=== PATIENT | male | born 1985 | race Hispanic/Latino ===

== ENCOUNTER 2021-04-17 14:43 | Emergency (ER) | payer BC, SELFPAY ==
[2021-04-17] MEDS ORDERED: Ibuprofen 200 MG TAB ONE (16:51)
[2021-04-17] MEDS ORDERED: Acetaminophen 325 MG TAB ONE (16:51)
== END 2021-04-17 17:03 | disposition home or self-care (01) ==
LOC: BURERS 14:43
DX: S92.354A Nondisplaced fracture of fifth metatarsal bone, right foot, initial encounter for closed fracture (principal); W10.9XXA Fall (on) (from) unspecified stairs and steps, initial encounter; Z79.899 Other long term (current) drug therapy
CPT/HCPCS: 29515